=== PATIENT | female | born 1980 | race American Indian/Alaskan Native ===

== ENCOUNTER 2017-01-30 13:51 | Emergency (ER) | payer MEDICARE ==
[2017-01-30 14:03] VITALS: BP 195/110
[2017-01-30 15:02] LABS: Basophils % (Auto) 0.7 % (0.0-1.8); Eosinophils % (Auto) 3.1 % (0.0-4.3); Hematocrit 42.1 % (30.3-42.9); Hemoglobin 14.1 gm/dl (10.1-14.3); Mean Corpuscular HGB Conc 33 % (30-34); Mean Corpuscular Hemoglobin 31 pg (28-32); Mean Corpuscular Volume 94 fl (79-97); Platelet Count 269 K/mm3 (140-440); Red Blood Count 4.47 M/mm3 (3.65-5.03); Red Cell Distribution Width 13.1 % (13.2-15.2); White Blood Count 6.3 K/mm3 (4.5-11.0)
[2017-01-30 15:14] LABS: INR 0.99 (0.87-1.13)
[2017-01-30 15:15] LABS: Partial Thromboplastin Time 24.7 Sec. (24.2-36.6)
[2017-01-30 15:26] LABS: Anion Gap 18 mmol/L; BUN/Creatinine Ratio 13; Blood Urea Nitrogen 14 mg/dL (7-17); Calcium 9.3 mg/dL (8.4-10.2); Carbon Dioxide 27 mmol/L (22-30); Chloride 104.4 mmol/L (98-107); Glucose 75 mg/dL (65-100); Potassium 4.4 mmol/L (3.6-5.0); Sodium 145 mmol/L (137-145)
== END 2017-01-30 20:57 | disposition left against medical advice (07) ==
LOC: ED 13:51
DX: M25.511 Pain in right shoulder (principal); Z53.21 Procedure and treatment not carried out due to patient leaving prior to being seen by health care provider
CPT/HCPCS: 36415; 80048; 84484; 85025; 85610; 85670; 85730; 93005; 93010